=== PATIENT | male | born 1990 | race Caucasian/White ===

== ENCOUNTER 2019-09-07 13:14 | Emergency (ER) | payer BC ==
[2019-09-07] MEDS ORDERED: LIDOCAINE 2% MPF 5 ML VIAL ONE (13:34)
[2019-09-07] MEDS ORDERED: MORPHINE 4 MG/ML SYR ONE (13:50)
[2019-09-07] MEDS ORDERED: TETANUS & DIPHTHERIA TOX,ADULT 0.5 ML VIAL ONE (13:51)
[2019-09-07] MEDS ORDERED: ONDANSETRON 4 MG (ODT) TAB ONE (13:53)
--- NOTE | 2019-09-07 14:05 | RAD REPORT ---
EXAM DESCRIPTION: RAD - Hand Left 3 View - 09/07/2019 1:48 pm CLINICAL HISTORY: left 2nd digit laceration, circular saw COMPARISON: No comparisons FINDINGS: Large laceration is seen involving the distal aspect of the second finger. No radiopaque f oreign body is evident. No fracture seen.
--- NOTE | 2019-09-07 14:38 | ER ---
Nurse's Notes [facility] Name: Fred De La Cruz Age: 28 yrs Sex: Male : 1990 Arrival Date: 09/07/2019 Time: 13:15 Bed 5 Private MD: Diagnosis: Superficial laceration left 2nd finger Presentation: 09/07 13:21 Presenting complaint: Patient states: laceration to L index finger while operating a circular saw. Injury occurred 10 minutes prior to arrival. Transition of care: patient was not received from another setting of care. Onset of symptoms was September 07, 2019. Risk Assessment: Do you want to hurt yourself or someone else? Patient reports no desire to harm self or others. Initial Sepsis Screen: Does the patient meet any 2 criteria? No. Patient's initial sepsis screen is negative. Does the patient have a suspected source of infection? No. Patient's initial sepsis screen is negative. Care prior to arrival: None. 13:21 Method Of Arrival: Ambulatory ss 13:21 Acuity: JUANCARLOS 4 ss Historical: - Allergies: 13:22 No Known Allergies; ss - PMHx: 13:22 None; ss - PSHx: 13:22 None; ss - Immunization history:: Adult Immunizations up to date. - Coronavirus screen:: The patient has NOT traveled to [place], [place], or [place] in the past 14 days. Proceed with normal triage process as indicated. - Social history:: Smoking status: Patient denies any tobacco usage or history of. - Family history:: not pertinent. - Ebola Screening: : Patient denies exposure to infectious person Patient denies travel to an Ebola-affected area in the 21 days before illness onset. - Hospitalizations: : No recent hospitalization is reported. Screenin:35 Abuse screen: Denies threats or abuse. Denies injuries from another. Nutritional hb screening: No deficits noted. Tuberculosis screening: No symptoms or risk factors identified. Fall Risk None identified. Assessment: 14:00 General: Appears in no apparent distress. uncomfortable, Behavior is calm, cooperative, ph appropriate for age. Pain: Complains of pain in palmar aspect of distal phalanx of left index finger. Neuro: Level of Consciousness is awake, alert, obeys commands, Oriented to person, place, time, situation. Cardiovascular: Capillary refill < 3 seconds Patient's skin is warm and dry. Respiratory: Airway is patent Respiratory effort is even, unlabored. GI: Reports nausea. Derm: Skin is healthy with good turgor, Skin is pink, warm \T\ dry. Musculoskeletal: Circulation, motion, and sensation intact. Range of motion: intact in all extremities. Injury Description: Laceration sustained to palmar aspect of distal phalanx of left index finger is full thickness, 2.6 to 7.5 cm long, bleeding moderately. Vital Signs: 13:22 BP 134 / 90; Pulse 87; Resp 18; Temp 98.4(TE); Pulse Ox 98% on R/A; Weight 99.79 kg; ss Height 5 ft. 10 in. (177.80 cm); Pain 6/10; 13:22 Body Mass Index 31.57 (99.79 kg, 177.80 cm) ED Course: 13:15 Patient arrived in ED. as 13:22 Wilmer Tierney MD is Attending Physician. rn 13:22 Triage completed. 13:22 Arm band placed on right wrist. 13:41 Gris Peace, JESUS is Primary Nurse. 13:45 XRAY Hand LEFT 3 View In Process Unspecified. EDMS 13:45 Patient has correct armband on for positive identification. Bed in low position. Call hb light in reach. 13:55 X-ray(s) taken. jp3 14:32 Rayo Polanco MD is Referral Physician. rn 14:35 Assist provider with laceration repair on palmar aspect of distal phalanx of left index ph finger that was between 2.6 to 7.5 cm using sutures. Set up tray. Performed by Wilmer Tierney MD Patient tolerated well. Patient admitted, IV remains in place. 14:59 Dressings: non-adherent dressing Tube gauze X 1; dorsal aspect of distal phalanx of jp3 left index finger, dorsal aspect of middle phalanx of left index finger, dorsal aspect of proximal phalanx of left index finger, palmar aspect of distal phalanx of left index finger, palmar aspect of middle phalanx of left index finger, palmar aspect of proximal phalanx of left index finger and left index fingernail xeroform strip applied prior to non-adherent drsg. Wound care: to laceration located on palmar aspect of distal phalanx of left index finger and left index fingernail was cleaned with Hibiclens, soaked in normal saline solution, debrided using Betadine scrub, irrigated with normal saline, Patient tolerated well. Administered Medications: 13:41 Drug: Lidocaine (1 %) 1 vials Volume: 5 ml; Route: Infiltration; ph 15:00 Follow up: Response: No adverse reaction ph 13:52 Drug: Zofran 4 mg Route: PO; ph 15:00 Follow up: Response: No adverse reaction ph 13:55 Drug: morphine 4 mg Route: IM; Site: right deltoid; ph 15:00 Follow up: Response: No adverse reaction ph 14:05 Drug: Tetanus-Diphtheria Toxoid Adult 0.5 ml {Isobutylene Operator Chief: [employer]. Exp: ph 06/27/2021. Lot #: [id number]. } Route: IM; Site: right deltoid; 15:00 Follow up: Response: No adverse reaction ph Outcome: 14:35 Discharge ordered by . rn 15:02 Patient left the ED. ph 15:02 Discharged to home ambulatory, with significant other. ph 15:02 Condition: good 15:02 Discharge instructions given to patient, Instructed on discharge instructions, follow up and referral plans. medication usage, Demonstrated understanding of instructions, follow-up care, medications, Prescriptions given X 2. Signatures: Dispatcher [employer] Alisha Sampson Roman, MD MD rn Smirch, Shelby, RN RN Gris Peace RN RN Sowmya Valencia RN RN Man Rice jp3
--- NOTE | 2019-09-07 14:39 | EDPHYS ---
Physician Documentation [facility] Name: Fred De La Cruz Age: 28 yrs Sex: Male : 1990 Arrival Date: 09/07/2019 Time: 13:15 Bed 5 Private MD: ED Physician Wilmer Tierney HPI: 09/07 13:40 This 28 yrs old Male presents to ER via Ambulatory with complaints of Finger rn Injury. 13:40 Associated injuries: The patient sustained left 2nd finger. Onset: The symptoms/episode rn began/occurred just prior to arrival. The patient has not experienced similar symptoms in the past. Reports accidentally cut left 2nd finger with circular saw, is right handed, unknown last tetanus. Minimal bleeding.. Historical: - Allergies: 13:22 No Known Allergies; ss - PMHx: 13:22 None; ss - PSHx: 13:22 None; ss - Immunization history:: Adult Immunizations up to date. - Coronavirus screen:: The patient has NOT traveled to [place], [place], or [place] in the past 14 days. Proceed with normal triage process as indicated. - Social history:: Smoking status: Patient denies any tobacco usage or history of. - Family history:: not pertinent. - Ebola Screening: : Patient denies exposure to infectious person Patient denies travel to an Ebola-affected area in the 21 days before illness onset. - Hospitalizations: : No recent hospitalization is reported. ROS: 13:40 MS/Extremity: + laceration to left 2nd finger Neuro: Neg for weakness/numbness rn Exam: 13:40 Constitutional: This is a well developed, well nourished patient who is awake, alert, rn seems anxious Cardiovascular: Regular rate and rhythm. No pulse deficits. MS/ Extremity: Pulses equal, no cyanosis. Neurovascular intact. Left 2nd distal finger with oblique 4 cm laceration, not complete amputation, no bone exposed, very minimal venous bleeding Vital Signs: 13:22 BP 134 / 90; Pulse 87; Resp 18; Temp 98.4(TE); Pulse Ox 98% on R/A; Weight 99.79 kg; ss Height 5 ft. 10 in. (177.80 cm); Pain 6/10; 13:22 Body Mass Index 31.57 (99.79 kg, 177.80 cm) ss Laceration: 14:27 Wound Repair of 4cm ( 1.6in ) subcutaneous laceration to left hand 2nd digit. Distal rn neuro/vascular/tendon intact. Anesthesia: Digital block administered with 3 mls of 1% lidocaine. Wound prep: Extensive cleansing by missile tracking technician, Wound irrigation by missile tracking technician, Particulate matter removal of dirt, Wound explored extensively, Copious irrigation. Skin closed with 12 5-0 Prolene using simple sutures and sterile technique. Subcutaneous tissue closed with 1 4-0 chromic gut using simple sutures and sterile technique. Dressed with Kerlix. Patient tolerated well. MDM: 13:22 Patient medically screened. rn 13:49 Test interpretation: by ED physician or midlevel provider: plain radiologic studies, rn Xray left hand neg for fracture of lacerated digit. 14:31 Differential diagnosis: finger laceration, fracture. Data reviewed: vital signs, nurses rn notes, radiologic studies, plain films, and as a result, I will discharge patient. Counseling: I had a detailed discussion with the patient and/or guardian regarding: the historical points, exam findings, and any diagnostic results supporting the discharge/admit diagnosis, radiology results, the need for outpatient follow up, to return to the emergency department if symptoms worsen or persist or if there are any questions or concerns that arise at home. Response to treatment: the patient's symptoms have markedly improved after treatment, and as a result, I will discharge patient. Special discussion: I discussed with the patient/guardian in detail that at this point there is no indication for admission to the hospital. It is understood, however, that if the symptoms persist or worsen the patient needs to return immediately for re-evaluation. Based on the history and exam findings, there is no indication for further emergent testing or inpatient evaluation. I discussed with the patient/guardian the need to see the hand specialist for further evaluation of the symptoms. 09/07 13:28 Order name: XRAY Hand LEFT 3 View; Complete Time: 14:27 rn 09/07 13:28 Order name: Suture Tray at Bedside; Complete Time: 13:41 rn 09/07 13:28 Order name: Wound Care; Complete Time: 13:41 rn Administered Medications: 13:41 Drug: Lidocaine (1 %) 1 vials Volume: 5 ml; Route: Infiltration; ph 15:00 Follow up: Response: No adverse reaction ph 13:52 Drug: Zofran 4 mg Route: PO; ph 15:00 Follow up: Response: No adverse reaction ph 13:55 Drug: morphine 4 mg Route: IM; Site: right deltoid; ph 15:00 Follow up: Response: No adverse reaction ph 14:05 Drug: Tetanus-Diphtheria Toxoid Adult 0.5 ml {Agricultural And Forestry Supervisor: Yekra. Exp: ph 06/27/2021. Lot #: [id number]. } Route: IM; Site: right deltoid; 15:00 Follow up: Response: No adverse reaction ph Disposition: 09/07/19 14:35 Discharged to Home. Impression: Superficial laceration left 2nd finger. - Condition is Stable. - Discharge Instructions: Laceration Care, Adult. - Prescriptions for Augmentin 875- 125 mg Oral Tablet - take 1 tablet by ORAL route every 12 hours for 10 days; 20 tablet. Tylenol- Codeine #3 300-30 mg Oral Tablet - take 1 tablet by ORAL route every 6 hours As needed; 15 tablet. - Medication Reconciliation Form, Thank You Letter, Antibiotic Education, Prescription Opioid Use form. - Follow up: Rayo Polanco MD; When: 5 - 6 days; Reason: Recheck today's complaints, Re-evaluation by your physician. - Problem is new. - Symptoms have improved. Signatures: Dispatcher [employer] EDMS Wilmer Tierney MD MD rn Smirch, Shelby, RN RN Gris Peace RN RN ph Corrections: (The following items were deleted from the chart) 15:02 14:35 09/07/2019 14:35 Discharged to Home. Impression: Superficial laceration left 2nd ph finger. Condition is Stable. Forms are Medication Reconciliation Form, Thank You Letter, Antibiotic Education, Prescription Opioid Use. Follow up: Rayo Polanco; When: 5 - 6 days; Reason: Recheck today's complaints, Re-evaluation by your physician. Problem is new. Symptoms have improved. rn
[2019-09-07 15:09] VITALS: BP 134/90; TEMP 98.4; O2SAT 98
== END 2019-09-07 15:02 | disposition home or self-care (01) ==
LOC: ER 13:14
PROC: 0JQK0ZZ Repair Left Hand Subcutaneous Tissue and Fascia, Open Approach (ICD-10-PCS; principal; 2019-09-07)
DX: S61.211A Laceration without foreign body of left index finger without damage to nail, initial encounter (principal); W31.2XXA Contact with powered woodworking and forming machines, initial encounter; Y93.89 Activity, other specified; Y92.9 Unspecified place or not applicable
CPT/HCPCS: 90471; 90714; 96372; 99284

== ENCOUNTER 2019-09-24 | Emergency (ER) | payer BC ==
--- NOTE | 2019-09-24 13:47 | EDPHYS ---
[facility]ation [facility] Name: Fred De La Cruz Age: 29 yrs Sex: Male : 1990 Arrival Date: 09/24/2019 Time: 11:14 Bed 19 Private MD: ED Physician Dashawn Li HPI: 09/24 12:12 This 29 yrs old Male presents to ER via Ambulatory with complaints of Suture snw Removal. 12:12 The patient has sutures on the palmar aspect of distal phalanx of left index finger. snw Previous treatment: the care was rendered at [facility], Treatment type: The patient's original treatment included debridement, irrigation, sutures, Outpatient prescription(s): The patient was given prescription(s) for abx, Previous recheck: the patient has not been checked since the original treatment. Sutures/rosalie progress: The patient has no c/o's. The wound is well-healing with no redness, swelling, discharge, or dehiscence reported. The patient has not experienced similar symptoms in the past. It is unknown whether or not the patient has recently seen a physician. Historical: - Allergies: 11:35 No Known Allergies; tw2 - Home Meds: 11:35 None [Active]; tw2 - PMHx: 11:35 None; tw2 - PSHx: 11:35 None; tw2 - Immunization history:: Adult Immunizations Last tetanus immunization: up to date. - Coronavirus screen:: The patient has NOT traveled to [place] in the past 14 days. - Social history:: Smoking status: . - Ebola Screening: : Patient denies travel to an Ebola-affected area in the 21 days before illness onset. ROS: 12:11 Constitutional: Negative for fever, chills, and weight loss, Eyes: Negative for injury, snw pain, redness, and discharge, ENT: Negative for injury, pain, and discharge, Neck: Negative for injury, pain, and swelling, Cardiovascular: Negative for chest pain, palpitations, and edema, Respiratory: Negative for shortness of breath, cough, wheezing, and pleuritic chest pain, Abdomen/GI: Negative for abdominal pain, nausea, vomiting, diarrhea, and constipation, Back: Negative for injury and pain, : Negative for injury, bleeding, discharge, and swelling, MS/Extremity: Negative for injury and deformity, Neuro: Negative for headache, weakness, numbness, tingling, and seizure, Psych: Negative for depression, anxiety, suicide ideation, homicidal ideation, and hallucinations. 12:11 Skin: Positive for need suture removal. Exam: 12:08 Constitutional: This is a well developed, well nourished patient who is awake, alert, snw and in no acute distress. Head/Face: Normocephalic, atraumatic. Eyes: Pupils equal round and reactive to light, extra-ocular motions intact. Lids and lashes normal. Conjunctiva and sclera are non-icteric and not injected. Cornea within normal limits. Periorbital areas with no swelling, redness, or edema. ENT: Nares patent. No nasal discharge, no septal abnormalities noted. Tympanic membranes are normal and external auditory canals are clear. Oropharynx with no redness, swelling, or masses, exudates, or evidence of obstruction, uvula midline. Mucous membranes moist. Neck: Trachea midline, no thyromegaly or masses palpated, and no cervical lymphadenopathy. Supple, full range of motion without nuchal rigidity, or vertebral point tenderness. No Meningismus. Chest/axilla: Normal chest wall appearance and motion. Nontender with no deformity. No lesions are appreciated. Cardiovascular: Regular rate and rhythm with a normal S1 and S2. No gallops, murmurs, or rubs. Normal PMI, no JVD. No pulse deficits. Respiratory: Lungs have equal breath sounds bilaterally, clear to auscultation and percussion. No rales, rhonchi or wheezes noted. No increased work of breathing, no retractions or nasal flaring. Abdomen/GI: Soft, non-tender, with normal bowel sounds. No distension or tympany. No guarding or rebound. No evidence of tenderness throughout. Back: No spinal tenderness. No costovertebral tenderness. Full range of motion. MS/ Extremity: Pulses equal, no cyanosis. Neurovascular intact. Full, normal range of motion. Neuro: Awake and alert, GCS 15, oriented to person, place, time, and situation. Cranial nerves II-XII grossly intact. Motor strength 5/5 in all extremities. Sensory grossly intact. Cerebellar exam normal. Normal gait. Psych: Awake, alert, with orientation to person, place and time. Behavior, mood, and affect are within normal limits. 12:08 Skin: Appearance: normal except for affected area, injury, sutured wound s/p circular saw injury, sutures removed, skin debrided, black coloration under distal tip of left index finger, but sensation present, no discharge, no erythema.. Vital Signs: 11:33 BP 127 / 79; Pulse 77; Resp 17; Pulse Ox 97% on R/A; tw2 MDM: 11:28 Patient medically screened. snw 12:10 Data reviewed: vital signs, nurses notes. Data interpreted: Pulse oximetry: on room air snw is 97 %. Interpretation: normal. Counseling: I had a detailed discussion with the patient and/or guardian regarding: the historical points, exam findings, and any diagnostic results supporting the discharge/admit diagnosis, the need for outpatient follow up, to return to the emergency department if symptoms worsen or persist or if there are any questions or concerns that arise at home. Special discussion: Based on the history and exam findings, there is no indication for further emergent testing or inpatient evaluation. I discussed with the patient/guardian the need to see the primary care provider for further evaluation of the symptoms. Administered Medications: No medications were administered Disposition: 14:01 Co-signature as Attending Physician, Dashawn Li MD I agree with the assessment and kdr plan of care. Disposition: 09/24/19 12:07 Discharged to Home. Impression: Encounter for removal of sutures. - Condition is Stable. - Discharge Instructions: Suture Removal, Care After, Incision Care, Adult. - Work release form, Medication Reconciliation Form, Thank You Letter, Antibiotic Education, Prescription Opioid Use form. - Follow up: Emergency Department; When: As needed; Reason: Worsening of condition. Follow up: Private Physician; When: 2 - 3 days; Reason: Recheck today's complaints, Continuance of care, Re-evaluation by your physician. Signatures: Dashawn Li MD MD kdr Therrien, Shelly, SENIOR NET DEVELOPER ARCHITECT-C SENIOR NET DEVELOPER ARCHITECT-Csnw Adilia Levin RN RN tw2 Corrections: (The following items were deleted from the chart) 12:17 12:07 09/24/2019 12:07 Discharged to Home. Impression: Encounter for removal of tw2 sutures. Condition is Stable. Forms are Medication Reconciliation Form, Thank You Letter, Antibiotic Education, Prescription Opioid Use. Follow up: Emergency Department; When: As needed; Reason: Worsening of condition. Follow up: Private Physician; When: 2 - 3 days; Reason: Recheck today's complaints, Continuance of care, Re-evaluation by your physician. gustavo
--- NOTE | 2019-09-24 13:47 | ER ---
Nurse's Notes [facility] Name: Fred De La Cruz Age: 29 yrs Sex: Male : 1990 Arrival Date: 09/24/2019 Time: 11:14 Bed 19 Private MD: Diagnosis: Encounter for removal of sutures Presentation: 09/24 11:31 Presenting complaint: Patient states: i got sutures about 17 days ago on my LEFT great tw2 finger and i saw my pcp last week and they said to just return here to get sutures removed and have it looked at, no pain, every now and then i get twinges of pain, but when i flex my finger i still feel like the whole tip moves. Transition of care: patient was not received from another setting of care. Onset of symptoms was September 24, 2019. Risk Assessment: Do you want to hurt yourself or someone else? Patient reports no desire to harm self or others. Initial Sepsis Screen: Does the patient meet any 2 criteria? No. Patient's initial sepsis screen is negative. Does the patient have a suspected source of infection? No. Patient's initial sepsis screen is negative. Care prior to arrival: None. 11:31 Method Of Arrival: Ambulatory tw2 11:31 Acuity: JUANCARLOS 4 tw2 Triage Assessment: 11:33 General: Appears in no apparent distress. well groomed, Behavior is calm, cooperative, tw2 appropriate for age. Pain: Denies pain. Derm: several sutures noted to pad of LEFT pointer finger with blackness noted. Historical: - Allergies: 11:35 No Known Allergies; tw2 - Home Meds: 11:35 None [Active]; tw2 - PMHx: 11:35 None; tw2 - PSHx: 11:35 None; tw2 - Immunization history:: Adult Immunizations Last tetanus immunization: up to date. - Coronavirus screen:: The patient has NOT traveled to [place] in the past 14 days. - Social history:: Smoking status: . - Ebola Screening: : Patient denies travel to an Ebola-affected area in the 21 days before illness onset. Screenin:17 Abuse screen: Denies threats or abuse. Nutritional screening: No deficits noted. tw2 Tuberculosis screening: No symptoms or risk factors identified. Fall Risk None identified. Assessment: 12:17 Reassessment: Patient appears in no apparent distress at this time. No changes from tw2 previously documented assessment. Patient and/or family updated on plan of care and expected duration. Pain level reassessed. Patient is alert, oriented x 3, equal unlabored respirations, skin warm/dry/pink. Vital Signs: 11:33 BP 127 / 79; Pulse 77; Resp 17; Pulse Ox 97% on R/A; tw2 ED Course: 11:14 Patient arrived in ED. as 11:28 Nataliia Vides FNP-C [facility]. snw 11:28 Dashawn Li MD is Attending Physician. snw 11:30 Adilia Levin, JESUS is Primary Nurse. tw2 11:32 Triage completed. tw2 11:32 Arm band placed on. tw2 11:32 Bed in low position. Call light in reach. tw2 11:32 No provider procedures requiring assistance completed. Patient did not have IV access tw2 during this emergency room visit. Administered Medications: No medications were administered Outcome: 12:07 Discharge ordered by . snw 12:16 Discharged to home ambulatory. tw2 12:16 Condition: stable 12:16 Discharge instructions given to patient, Instructed on discharge instructions, follow up and referral plans. Demonstrated understanding of instructions, follow-up care, wound care. 12:17 Patient left the ED. tw2 Signatures: Nataliia Vides FNP-C FNP-Alisha Hutton as Adilia Levin, RN RN tw2
== END 2019-09-24 12:17 | disposition home or self-care (01) ==
DX: Z48.02 Encounter for removal of sutures (principal)
CPT/HCPCS: 99281